=== PATIENT | female | born 1975 | race Caucasian/White ===

== ENCOUNTER 2017-01-27 08:58 | Emergency (ER) | payer MEDICAID ==
[~2017-01-27] VITALS: Ht 160 cm; Wt 85.3 kg
[~2017-01-27 08:58] MED LIST: DULCOLAX 1010 MG/SUP PR; GABAPENTIN300 M1 PO; HYDROCHLOROTH12.5 M1 PO; LORTAB 10/3251 TAB PO; LORTAB 5/500 501 TAB PO; NAPROSYN 500MG500 MG PO; NOMEDS XX; PAROXETINE HCL20 MG NG; SUBOXONE 8 MG-21 FIL SL; XANAX 1MG TABLET1 MG PO; ZOFRAN ODT4 MG PO
--- OUTSIDE RECORDS SUMMARY | 2017-01-27 09:06 | External Medical Summary Rpt | CCD ---
Author Author , ANTIONETTE ADAN Address Unknown Phone Purpose Continuity of Care Document - 07-12-2016 through 2016 Problems Code Diagnosis DOS Provider Status R04.89 HEMORRHAGE 11-14-2016 FROM OTHER SITES IN RESPIRATORY PASSAGES N63 UNSPECIFIED 07-12-2016 LUMP IN BREAST Z12.31 ENCOUNTER 07-12-2016 FOR SCREENING MAMMOGRAM FOR MALIGNANT NEOPLASM OF BREAST K59.00 CONSTIPATIO N, UNSPECIFIED R10.9 UNSPECIFIED ABDOMINAL PAIN S80.01XA CONTUSION OF RIGHT KNEE, INITIAL ENCOUNTER T14.8XXA OTHER INJURY OF UNSPECIFIED BODY REGION, INITIAL ENCOUNTER Z90.49 ACQUIRED ABSENCE OF OTHER SPECIFIED PARTS OF DIGESTIVE TRACT
--- OUTSIDE RECORDS SUMMARY | 2017-01-27 09:07 | External Medical Summary Rpt | CCD ---
Demographics Preferred Language Yoruba Marital Status Unknown Mandaen Affiliation Unknown Race Unknown Ethnic Group Unknown Author Author , ANTIONETTE ADAN Address Unknown Phone Immunization No patient found.
--- OUTSIDE RECORDS SUMMARY | 2017-01-27 09:07 | External Medical Summary Rpt | CCD ---
Author Author [facility] Organization [facility] Address Unknown Phone Unavailable Purpose Continuity of Care Document - through 2016
--- OUTSIDE RECORDS SUMMARY | 2017-01-27 09:07 | External Medical Summary Rpt | CCD ---
Demographics Preferred Language Croatian Marital Status Unknown Hinduism Affiliation Unknown Race Unknown Ethnic Group Unknown Author Author , ANTIONETTE ADAN Address Unknown Phone Immunization No patient found.
[2017-01-27] MEDS ORDERED: BUPRENORPHINE H1 TA2 SL (09:14)
[2017-01-27] MEDS ORDERED: PREDNISONE 20MG20 MG PO (09:33)
[2017-01-27] MEDS ORDERED: FLONASE 50 MCG16 GM (09:33)
[2017-01-27] MEDS ORDERED: CLARITIN 10MG T10 MG PO (09:33)
[2017-01-27 09:34] VITALS: BP 144/97
--- NOTE | 2017-01-27 09:34 | Urgent Treatment Center Report ---
History of Present Issue Date/Time Seen by Provider 01/27/1712 Visit Reason Pt arrived: Presenting Problem: Location if Accident: Onset of symptoms date/time:/ or onset unknown for: Have you (or family members/close friends) recently traveled outside the [place]? If Yes, where/when: Have you had exposure to infectious disease within the past month? TB? Other? Specify: Source patient, RN notes reviewed Exam Limitations no limitations Comment Patient states that she has left ear pain for the past 4-5 months. Initially saw PCP in [place] and was treated with several rounds of antibiotics. Transferred PCP and was referred to ENT, who treated her with cortisporin ointment. She states that none of this has caused any improvement in symptoms. States that it feels like the "fat part" of her eye is swollen and inflamed, not her ear drum. She says sometimes she wakes up with it bleeding and it constantly drains. Patient has COPD and states she lives in an apartment covered in black mold that management refuses to correct. She states that most of these symptoms seemed to start after that. Always has runny nose, sore throat, and cough as well. She also smokes. At no point has she had a fever. Says she has had all her teeth removed so does not think it is dental related. She has neer had a rash. Pain radiates into her head and behind her ear. ALLERGIES Coded Allergies: NSAIDS (Non-Steroidal Anti-Inflamma (Intermediate, I-HIVES 12/08/15) RED DYE (FOOD) (From RED DYE (FOOD/DRUG)) (Intermediate, I-ITCHING 12/08/15) ketorolac (From TORADOL) (Intermediate, I-RASH 12/08/15) tramadol (Intermediate, I-ITCHING 12/08/15) amoxicillin (01/27/17) Home Medications Active Scripts Ondansetron (Zofran 4MG Odt) 4 MG PO Q6HP PRN NAUSEA AND VOMITING #10 ODT Prov: 12/11/15 Bisacodyl (Dulcolax 10MG Supp) 10 MG AK BID PRN constipation #4 SUP Prov: 12/11/15 Reported Medications PAROXETINE HCL (Paroxetine Hcl) 20 MG NG DAILY #30 TAB Alprazolam (Xanax 1MG) 1 MG PO BID #60 Gabapentin 300 MG PO BID #60 BUPRENORPHINE HCL/NALOXONE HCL (Buprenorphin-Naloxon 8-2 MG Sl) 1 TAB SL DAILY History Medical History General CAD? No Angina: No [place]: No Hypertension? No Hyperlipidemia? No CHF? No DVT? No PE? No COPD? No Asthma? No Anemia? No GERD? No Gastric ulcers? No GI Bleed? No Hernia? No Thyroid Problems? No Hypothyroidism? No CVA? No Seizures? No Diabetes? No Renal Insuffiency? No UTI? No Stones? No BPH? No GB Disease: No Nephritic Syndrome? No Asplenia? No Hepatitis? No Sickle Cell Disease? No Arthritis? No Migraines? No Cataracts? No Glaucoma? No MRSA? No HIV? No TB? No Anxiety? No Depression? No Cancer? No Additional hx: Tobacco use disorder Immunization HX DT/Tetanus 1-4 Years Ago Pneumonia Refuses Surgical Hx Previous Surgery?Y CYST FROM LEFT RIGHT TUBE OVARY HYSTERECTOMY BLADDER/ BOWELS CLEANING Appendectomy Family History Family HX Diabetes Yes CAD No Hypertension Yes Hyperlipidemia Yes Cancer Yes TB No Social History Smoking Hx Packs/day 1 1/2 - 2 Packs Alcohol Alcohol: No Review of Systems All Other Systems Reviewed and Negative ENT ear pain, nose congestion, missing teeth, throat pain. denies: drooling/ excessive saliva, mouth pain. Respiratory cough Physical Exam Vital Signs Vital Signs Date Time Temp Pulse Resp B/P Pulse O2 O2 Flow FiO2 Ox Delivery Rate 01/27 09 98.4 74 20 144/97 100 General Appearance normal appearance, no apparent distress Ear, Nose, Throat hearing grossly normal, normal ENT inspection, nasal congestion Neck normal inspection, non-tender, supple, full range of motion Respiratory Status No: respiratory distress, trachea midline, chest symmetrical. Lung Sounds bilateral: normal breath sounds, lungs clear. Cardiovascular normal exam, regular rate/rhythm, no peripheral edema, no gallop, no JVD, no murmur, no rub Extremities non-tender, normal range of motion, normal inspection, normal capillary refill Neurologic alert, normal exam, oriented x 3 Mental status normal mood/affect Medical Decision Making LABS/Meds/Orders Pt receiving controlled substance in ED? No Departure Departure Time of Disposition 924 Disposition DC Home or Self Care(routine) Clinical Impression Primary Impression: Otalgia of left ear Secondary Impressions: Allergic rhinitis Qualifiers: Chronicity: acute Allergic rhinitis trigger: unspecified Allergic rhinitis seasonality: unspecified seasonality Qualified Code: J30.9 - Allergic rhinitis, unspecified Condition STABLE Referrals JOSE BRAGG (Family) Patient Instructions DI for Ear Pain-Adult Additional Instructions Ear exam is completely normal - TM has no pathology, ear canal looks normal with excoriation, swelling, bleeding. Has had multiple rounds of antibiotics - consider referrred ear pain. TMJ, cervical spine disease, fibromyalgia, etc. F /U with PCP to discuss these possibilities. Patient concerned about black mold - we discussed this on an outpatient basis at my office when she was there with her nephew. 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 Discharge Counseling Counseled pt/family regarding diagnosis, test results, medications/RX, home care, follow up needs Prescriptions Current Visit Scripts Prednisone (Prednisone 20MG) 20 MG PO BID #10 TAB Fluticasone Propionate (Flonase 50 Mcg Nasal [place]) 1 SPRAY NA BID #1 BOT Loratadine (Claritin 10MG) 10 MG PO DAILY #30 TAB at 0937
== END 2017-01-27 09:37 | disposition home or self-care (01) ==
LOC: UTC 08:58
DX: J30.9 Allergic rhinitis, unspecified (principal); F17.210 Nicotine dependence, cigarettes, uncomplicated; Z88.1 Allergy status to other antibiotic agents; Z88.6 Allergy status to analgesic agent